=== PATIENT | female | born 1995 | race Caucasian/White ===

== ENCOUNTER 2016-11-23 04:55 | Day surgery (SDC) | payer OTHER ==
[~2016-11-23] VITALS: Ht 167.6 cm; Wt 70.5 kg
[2016-11-23] VITALS (8 sets, daily range): BP systolic 104–124; BP diastolic 53–68; PULSE 60–78; TEMP 98.2
[~2016-11-23 04:55] MED LIST: PATANOL OPHTHALM5 ML OU
[2016-11-23 05:35] LABS: BASO # 0.1 (0.0-0.2); BASO % 0.6 % (0.0-2.0); EOS # 0.1 (0.0-0.7); EOS % 1.2 % (0-4.0); GRAN # 6.9 (1.4-6.5); GRAN % 64.7 % (42.2-75.2); HEMATOCRIT 43.5 % (37.0-47.0); HEMOGLOBIN 14.7 g/dl (12.5-16.0); MEAN CELL VOLUME 89 fl (80.0-100.0); MEAN CORPUSCULAR HEMOGLOBIN 30 pg (27.0-31.0); MEAN CORPUSCULAR HGB CONC 34 g/dl (33.0-37.0); MEAN PLATELET VOLUME 10.1 fl (7.4-10.4); MONO # 0.5 (0.1-0.6); MONO % 5.1 % (1.7-9.3); PLATELET COUNT 270 K/mm3 (130-400); RED BLOOD COUNT 4.91 M/mm3 (4.10-5.30); REDCELL DISTRIBUTION WIDTH-CV 12.1 % (11.5-14.5); WHITE BLOOD COUNT 10.6 K/mm3 (4.8-10.8)
[2016-11-23 05:41] LABS: PH 5 (5-8); URINE APPEARANCE Hazy; URINE BACTERIA Rare /hpf; URINE BILIRUBIN Negative (NEGATIVE); URINE BLOOD 1+ (NEGATIVE); URINE COLOR Yellow; URINE GLUCOSE Negative (NEGATIVE); URINE KETONE Negative (NEGATIVE); URINE UROBILINOGEN Negative (NEGATIVE)
[2016-11-23 05:45] LABS: ADJUSTED CALCIUM 9.2 mg/dL (8.4-10.2); BILIRUBIN,TOTAL 0.7 mg/dL (0.0-1.0); CREATININE, serum 0.72 mg/dL (0.52-1.25); POTASSIUM 3.8 mmol/L (3.4-5.0); TOTAL PROTEIN 8.4 gm/dL (6.4-8.2)
[2016-11-23] MEDS ORDERED: MACROBID 1100 MG/CAP PO (07:07)
[2016-11-23] MEDS ORDERED: NORCO 325 MG-51 TAB PO (16:18)
== END 2016-11-23 16:51 | disposition home or self-care (01) ==
LOC: COL.ER 04:55 → SDCO 08:39 → SURG 08:39 → SDCO 16:51
PROVIDERS: Emergency Medicine
DX: K35.80 Unspecified acute appendicitis (principal)
CPT/HCPCS: OP; J0330; J0696; J1100; J1170; J1885; J2175; J2250; J2405; J2704; J2765; J3010; J7030; J7120; Q9967

== ENCOUNTER 2018-11-12 19:05 | Emergency (ER) | payer OTHER ==
[~2018-11-12] VITALS: Ht 167.6 cm; Wt 72.7 kg
[~2018-11-12 19:05] MED LIST changes: +MACROBID 1100 MG/CAP PO; +NORCO 325 MG-51 TAB PO
[2018-11-12 19:15] VITALS: BP 118/70; TEMP 98.1
[2018-11-12] MEDS ORDERED: PROTONIX 40MG T40 MG PO (19:19)
[2018-11-12 20:40] VITALS: PULSE 64
== END 2018-11-12 20:40 | disposition home or self-care (01) ==
LOC: COL.ER 19:05
DX: S00.93XA Contusion of unspecified part of head, initial encounter (principal); S40.011A Contusion of right shoulder, initial encounter; S90.01XA Contusion of right ankle, initial encounter; V91.83XA Other injury due to other accident to other powered watercraft, initial encounter; Y93.17 Activity, water skiing and wake boarding; Y92.39 Other specified sports and athletic area as the place of occurrence of the external cause

== ENCOUNTER → 2019-04-09 | Outpatient (CLI) | payer OTHER ==
[~2019-04-09] MED LIST changes: +PROTONIX 40MG T40 MG PO
== END ==
LOC: COL.RAD 10:55
DX: T83.84XA Pain due to genitourinary prosthetic devices, implants and grafts, initial encounter (principal); T83.32XA Displacement of intrauterine contraceptive device, initial encounter; Z30.431 Encounter for routine checking of intrauterine contraceptive device; Z97.5 Presence of (intrauterine) contraceptive device

== ENCOUNTER 2019-12-31 17:25 | Emergency (ER) | payer OTHER ==
[~2019-12-31] VITALS: Ht 167.6 cm; Wt 72.7 kg
[2019-12-31 17:41] VITALS: TEMP 97.8
[2019-12-31] MEDS ORDERED: TESSALON PERLE200 MG PO (19:18)
[2019-12-31 19:32] VITALS: BP 107/58; PULSE 68
== END 2019-12-31 19:37 | disposition home or self-care (01) ==
LOC: COL.ER 17:25
DX: U07.1 COVID-19 (principal)